=== PATIENT | female | born 1990 | race African-American/Black ===

== ENCOUNTER 2016-10-08 00:06 | Emergency (ER) | payer OTHER ==
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
[~2016-10-08 00:06] MED LIST: BIRTH CONTROL PATCH TD; FLAGYL250 MG PO; FLEXERIL10 MG PO; ORUDIS75 M1 DOB; TYLOX 5/500 CAP1 CAP PO
== END 2016-10-08 03:05 | disposition home or self-care (01) ==
LOC: CFTX 00:06 → CED 00:06 → CFTX 01:33
DX: S16.1XXA Strain of muscle, fascia and tendon at neck level, initial encounter (principal); S33.5XXA Sprain of ligaments of lumbar spine, initial encounter; S80.02XA Contusion of left knee, initial encounter; S80.01XA Contusion of right knee, initial encounter; V43.52XA Car driver injured in collision with other type car in traffic accident, initial encounter
CPT/HCPCS: 29530; 72100; 73562; 99284